=== PATIENT | male | born 2000 | race Caucasian/White ===

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

== ENCOUNTER 2018-01-11 15:42 | Emergency (ER) | payer OTHER ==
[~2018-01-11] VITALS: Ht 188 cm; Wt 104.3 kg
[~2018-01-11 15:42] MED LIST changes: +Bactrim Ds Tab1 EACH PO
== END 2018-01-11 17:15 | disposition home or self-care (01) ==
LOC: ER 15:42
DX: J06.9 Acute upper respiratory infection, unspecified (principal)
CPT/HCPCS: 99283

== ENCOUNTER 2018-12-26 13:33 | Emergency (ER) | payer SELFPAY ==
[~2018-12-26] VITALS: Ht 185.4 cm; Wt 102.1 kg
[2018-12-26] MEDS ORDERED: PENVK500 PO (14:33)
== END 2018-12-26 14:39 | disposition home or self-care (01) ==
LOC: ER 13:33
DX: J02.0 Streptococcal pharyngitis (principal)
CPT/HCPCS: 87430; 99283; J1100

== ENCOUNTER 2019-07-30 11:06 | Emergency (ER) | payer OTHER ==
[~2019-07-30] VITALS: Ht 185.4 cm; Wt 97.5 kg
[~2019-07-30 11:06] MED LIST changes: +PENVK500 PO
[2019-07-30] MEDS ORDERED: Mucinex600 MG PO (11:46)
[2019-07-30] MEDS ORDERED: Veetids 500500 MG PO (11:46)
== END 2019-07-30 12:00 | disposition home or self-care (01) ==
LOC: ER 11:06
DX: J02.9 Acute pharyngitis, unspecified (principal); J45.909 Unspecified asthma, uncomplicated; F90.9 Attention-deficit hyperactivity disorder, unspecified type; Z79.2 Long term (current) use of antibiotics
CPT/HCPCS: 87081; 87430; 99283

== ENCOUNTER 2019-11-08 12:18 | Emergency (ER) | payer OTHER ==
[~2019-11-08] VITALS: Ht 185.4 cm; Wt 104.3 kg
[~2019-11-08 12:18] MED LIST changes: +Mucinex600 MG PO; +Veetids 500500 MG PO
[2019-11-08] MEDS ORDERED: HYDR1TAB94 PO (16:13)
== END 2019-11-08 16:18 | disposition home or self-care (01) ==
LOC: ER 12:18
DX: S52.571A Other intraarticular fracture of lower end of right radius, initial encounter for closed fracture (principal); S52.611A Displaced fracture of right ulna styloid process, initial encounter for closed fracture; Z79.2 Long term (current) use of antibiotics; F90.9 Attention-deficit hyperactivity disorder, unspecified type; V00.131A Fall from skateboard, initial encounter
CPT/HCPCS: 25605; 36415; 73100; 99283-25; J2704; J7030

== ENCOUNTER 2021-04-02 16:47 | Emergency (ER) | payer OTHER ==
[~2021-04-02] VITALS: Ht 185.4 cm; Wt 108.9 kg
[~2021-04-02 16:47] MED LIST changes: +HYDR1TAB94 PO
[2021-04-02] MEDS ORDERED: LIDO700A20 TOP (17:50)
[2021-04-02] MEDS ORDERED: CYCL10 PO (17:50)
== END 2021-04-02 18:11 | disposition home or self-care (01) ==
LOC: ER 16:47
DX: S29.012A Strain of muscle and tendon of back wall of thorax, initial encounter (principal); J45.909 Unspecified asthma, uncomplicated; F17.220 Nicotine dependence, chewing tobacco, uncomplicated; X58.XXXA Exposure to other specified factors, initial encounter
CPT/HCPCS: 71101; 96372; 99283-25; J1885

== ENCOUNTER 2021-07-06 19:16 | Emergency (ER) | payer OTHER ==
[~2021-07-06] VITALS: Ht 188 cm; Wt 107.0 kg
[~2021-07-06 19:16] MED LIST changes: +CYCL10 PO; +LIDO700A20 TOP; +ONDA4ODT MM
== END 2021-07-06 19:56 | disposition home or self-care (01) ==
LOC: ER 19:16
DX: S93.401A Sprain of unspecified ligament of right ankle, initial encounter (principal); X58.XXXA Exposure to other specified factors, initial encounter
CPT/HCPCS: 73600; 99283-25

== ENCOUNTER 2021-09-15 09:21 | Emergency (ER) | payer OTHER ==
[~2021-09-15] VITALS: Ht 188 cm; Wt 106.6 kg
[2021-09-15] MEDS ORDERED: ACET500 PO (12:08)
[2021-09-15] MEDS ORDERED: OXYC5 PO (12:08)
[2021-09-15] MEDS ORDERED: CEPH500 PO (12:08)
== END 2021-09-15 12:33 | disposition home or self-care (01) ==
LOC: ER 09:21
DX: L03.113 Cellulitis of right upper limb (principal); F17.220 Nicotine dependence, chewing tobacco, uncomplicated; J45.909 Unspecified asthma, uncomplicated; Z88.5 Allergy status to narcotic agent; Z79.899 Other long term (current) drug therapy
CPT/HCPCS: 73130; A9270; J1885

== ENCOUNTER 2021-11-20 07:55 | Emergency (ER) | payer OTHER ==
[~2021-11-20] VITALS: Ht 188 cm; Wt 108.9 kg
[~2021-11-20 07:55] MED LIST changes: +ACET500 PO; +OXYC5 PO
[2021-11-20 09:35] LABS: BASOPHILS ABSOLUTE AUTO 0.02 K/mm3 (0.00-0.23); BASOPHILS PERCENT AUTO 0 % (0-2); EOSINOPHILS ABSOLUTE AUTO 0.03 K/mm3 (0.00-0.68); EOSINOPHILS PERCENT AUTO 0 % (0-6); Hematocrit 46.3 % (37.0-53.0); Hemoglobin 15.9 g/dL (13.5-17.5); IMMATURE GRAN ABSOLUTE AUTO 0.03 K/mm3 (0.00-0.10); IMMATURE GRAN PERCENT AUTO 0 % (0-1); LYMPHOCYTES ABSOLUTE AUTO 2.01 K/mm3 (0.84-5.20); LYMPHOCYTES PERCENT AUTO 18 % (21-46); MONOCYTES ABSOLUTE AUTO 0.79 K/mm3 (0.16-1.47); MONOCYTES PERCENT AUTO 7 % (4-13); Mean Corpuscular HGB 30.2 pg (26.0-34.0); Mean Corpuscular HGB Conc 34.3 g/dL (31.5-36.5); Mean Corpuscular Volume 88 fL (80-100); Mean Platelet Volume 9.7 fL (9.1-12.4); NEUTROPHILS ABSOLUTE AUTO 8.03 K/mm3 (1.96-9.15); NEUTROPHILS PERCENT AUTO 74 % (41-73); Platelet Count 281 K/mm3 (150-400); RDW Coefficient Variation 12.1 % (11.7-14.2); RDW Standard Deviation 39.2 fL (35.1-46.3); Red Blood Cell Count 5.27 M/mm3 (4.30-5.90); White Blood Cell Count 10.91 K/mm3 (4.00-11.30)
[2021-11-20 09:46] LABS: Influenza A, PCR NEGATIVE (NEGATIVE); Influenza B, PCR NEGATIVE (NEGATIVE); Resp Syncytial Virus, PCR NEGATIVE (NEGATIVE); SARS-Cov-2 (COVID-19) PCR, MMC NEGATIVE (NEGATIVE)
[2021-11-20 10:05] LABS: Albumin, Blood 4.2 g/dL (3.4-5.0); Bilirubin, Total 0.8 mg/dL (0.1-1.0); Calcium, Blood 9.7 mg/dL (8.5-10.1); Creatinine, Blood 0.82 mg/dL (0.60-1.20); Globulin, Blood 4.2 g/dL (2.2-4.0); Potassium, Blood 4.1 mmol/L (3.5-5.5); Total Protein, Blood 8.4 g/dL (6.4-8.2)
[2021-11-20] MEDS ORDERED: ONDA4 PO (11:40)
== END 2021-11-20 12:17 | disposition home or self-care (01) ==
LOC: ER 07:55
PROVIDERS: Emergency Medicine; Student in an Organized Health Care Education/Training Program
DX: R10.9 Unspecified abdominal pain (principal); F17.220 Nicotine dependence, chewing tobacco, uncomplicated; Z20.822 Contact with and (suspected) exposure to COVID-19; Z88.5 Allergy status to narcotic agent
CPT/HCPCS: 0241U; 36415; 71045; 74177; 80053; 83690; 85025; A9270; J2405; J7030; Q9967

== ENCOUNTER 2022-02-21 14:44 | Emergency (ER) | payer OTHER ==
[~2022-02-21] VITALS: Ht 188 cm; Wt 106.6 kg
[~2022-02-21 14:44] MED LIST changes: +ONDA4 PO
[2022-02-21] MEDS ORDERED: Percocet 5-3251 EACH PO (16:15)
== END 2022-02-21 16:25 | disposition home or self-care (01) ==
LOC: ER 14:44
DX: M25.511 Pain in right shoulder (principal); Z88.5 Allergy status to narcotic agent; Z79.899 Other long term (current) drug therapy; J45.909 Unspecified asthma, uncomplicated; F17.220 Nicotine dependence, chewing tobacco, uncomplicated
CPT/HCPCS: 73030; A9270

== ENCOUNTER 2023-10-19 17:42 | Emergency (ER) | payer OTHER ==
[~2023-10-19] VITALS: Ht 175.3 cm; Wt 70.3 kg
[~2023-10-19 17:42] MED LIST changes: +Percocet 5-3251 EACH PO
[2023-10-19] MEDS ORDERED: Lactated Ringer's 1,000 ML IV ONE ×2 (18:00→18:10)
[2023-10-19 18:03] LABS: BASOPHILS ABSOLUTE AUTO 0.03 K/mm3 (0.00-0.23); BASOPHILS PERCENT AUTO 0 % (0-2); EOSINOPHILS ABSOLUTE AUTO 0.01 K/mm3 (0.00-0.68); EOSINOPHILS PERCENT AUTO 0 % (0-6); Hematocrit 46.5 % (37.0-53.0); Hemoglobin 16.1 g/dL (13.5-17.5); IMMATURE GRAN ABSOLUTE AUTO 0.04 K/mm3 (0.00-0.10); IMMATURE GRAN PERCENT AUTO 0 % (0-1); LYMPHOCYTES ABSOLUTE AUTO 1.57 K/mm3 (0.84-5.20); LYMPHOCYTES PERCENT AUTO 12 % (21-46); MONOCYTES ABSOLUTE AUTO 0.47 K/mm3 (0.16-1.47); MONOCYTES PERCENT AUTO 4 % (4-13); Mean Corpuscular HGB 29.6 pg (26.0-34.0); Mean Corpuscular HGB Conc 34.6 g/dL (31.5-36.5); Mean Corpuscular Volume 86 fL (80-100); Mean Platelet Volume 9.5 fL (9.1-12.4); NEUTROPHILS PERCENT AUTO 84 % (41-73); Platelet Count 303 K/mm3 (150-400); RDW Coefficient Variation 12.7 % (11.7-14.2); Red Blood Cell Count 5.44 M/mm3 (4.30-5.90); White Blood Cell Count 13.32 K/mm3 (4.00-11.30)
[2023-10-19] MEDS ORDERED: Lactated Ringer's 2,000 ML IV ONE (18:04)
[2023-10-19] MEDS ORDERED: NS 1,000 ML IV SCH (18:10)
[2023-10-19 18:23] LABS: Albumin, Blood 4.5 g/dL (3.4-5.0); Bilirubin, Total 0.4 mg/dL (0.1-1.0); Bun/Creatinine Ratio 12.8 (12.0-20.0); Calcium, Blood 9.2 mg/dL (8.5-10.1); Creatinine, Blood 0.86 mg/dL (0.60-1.20); Globulin, Blood 4.4 g/dL (2.2-4.0); Potassium, Blood 3.9 mmol/L (3.5-5.5); Total Protein, Blood 8.9 g/dL (6.4-8.2)
[2023-10-19 20:04] LABS: Source, Urine Clean Catch
[2023-10-19 20:09] LABS: Appearance, Urine Clear (Clear); Bilirubin, Urine Neg (Neg); Blood, Urine Neg (Neg); Color, Urine Yellow (P-Yellow); Glucose Qualitative, Urine Neg (Neg); Ketones, Urine 3+ (Neg); Leukocyte Esterase, Urine Neg (Neg); Nitrite, Urine Neg (Neg); Protein, Urine Neg (Neg); Urobilinogen, Urine NORM (Normal)
[2023-10-19 20:26] LABS: U Amphetamine Screen Not Detected; U Barbituate Screen Not Detected; U Benzodiazapine Screen Not Detected; U Buprenorphine Screen Not Detected; U Cannabinoids Screen DETECTED; U Cocaine Screen Not Detected; U Methadone Screen Not Detected; U Methamphetamine Screen Not Detected; U Opiates Screen Not Detected; U Oxycodone Screen Not Detected; U Phencyclidine Screen Not Detected
[2023-10-19 20:30] VITALS: BP 144/83
== END 2023-10-19 20:45 | disposition home or self-care (01) ==
LOC: ER 17:42
PROVIDERS: Student in an Organized Health Care Education/Training Program
DX: F10.129 Alcohol abuse with intoxication, unspecified (principal); E86.0 Dehydration; T67.5XXA Heat exhaustion, unspecified, initial encounter; J45.909 Unspecified asthma, uncomplicated; F17.220 Nicotine dependence, chewing tobacco, uncomplicated; Z79.899 Other long term (current) drug therapy; Z88.5 Allergy status to narcotic agent
CPT/HCPCS: 80053; 81003; 82947; 85025; 93005; 93010; 96360; 99284-25; J7120

== ENCOUNTER 2024-02-03 08:29 | Day surgery (SDC) | payer OTHER ==
[~2024-02-03] VITALS: Ht 185.4 cm; Wt 101.0 kg
[2024-02-03] VITALS (9 sets, daily range): BP systolic 124–138; BP diastolic 78–90
[~2024-02-03 08:29] MED LIST changes: +CeFAZolin Sodium 2,000 MG in NS 100 ML IV SCH; +Lactated Ringer's 1,000 ML IV SCH
[2024-02-03] MEDS ORDERED: CeFAZolin Sodium 2,000 MG VIAL ONE (08:34)
--- NOTE | 2024-02-03 09:06 | NUR ---
Ambulatory in Day Surgery History, Chart, Medications and Allergies reviewed before start of procedure. Pre-Op teaching done. Pt verbalizes understanding. Patient States Post-Procedure ride home has been arranged.
[2024-02-03] MEDS ORDERED: Bupivacaine 0.5% HCl 5 MG/ML 30MLVIAL ONE (10:18)
[2024-02-03] MEDS ORDERED: propofoL 100 ML IV ONE (10:24)
[2024-02-03] MEDS ORDERED: FentaNYL Citrate 50 MCG/ML 2 ML Injection ONE (10:27)
[2024-02-03] MEDS ORDERED: Midazolam HCl 1MG / ML 2ML Vial ONE (10:28)
[2024-02-03] MEDS ORDERED: Rocuronium Bromide 10 MG/ML 5ML Injection IV ONE ×2 (10:31→11:46)
[2024-02-03] MEDS ORDERED: Ketorolac Tromethamine 30mg Vial ONE (10:42)
[2024-02-03] MEDS ORDERED: Dexamethasone Sod Phos 10 MG/ML 1ML VIAL ONE (10:42)
[2024-02-03] MEDS ORDERED: Ondansetron HCl 2 MG / ML 2ML Vial ONE (10:42)
[2024-02-03] MEDS ORDERED: Sugammadex Sodium 200 MG/2ML SDV (100 MG/ML) ONE (10:43)
[2024-02-03] MEDS ORDERED: OxyCODONE 5 mg/Acetamin 325 mg TABLET PO PRN (11:55)
--- NOTE | 2024-02-03 13:34 | NUR ---
Discharge instructions reviewed with patient. Patient verbalizes understanding. Copy given to patient to take home. Dressing X3 c/d/i. 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 Patient States Post-Procedure ride home has been arranged. Discharged via wheelchair to private car for ride home.
== END 2024-02-03 13:36 | disposition home or self-care (01) ==
LOC: ORSCMMR 08:29 → ORD 10:15 → ORSCMMR 10:15 → ORD 13:00 → ORSCMMR 13:36 → ORD 02-13 13:00
PROVIDERS: Surgery
PROC: 0YU54JZ Supplement Right Inguinal Region with Synthetic Substitute, Percutaneous Endoscopic Approach (ICD-10-PCS; principal; 2024-02-03 10:15)
PROC: 8E0W4CZ Robotic Assisted Procedure of Trunk Region, Percutaneous Endoscopic Approach (ICD-10-PCS; principal; 2024-02-03 10:15)
DX: K40.91 Unilateral inguinal hernia, without obstruction or gangrene, recurrent (principal); J45.909 Unspecified asthma, uncomplicated; F90.9 Attention-deficit hyperactivity disorder, unspecified type
CPT/HCPCS: A9270; C1781; J0690; J1100; J1885; J2250; J2405; J2704; J3010; J7120

== ENCOUNTER 2024-03-27 07:22 | Emergency (ER) | payer OTHER ==
[~2024-03-27] VITALS: Ht 188 cm; Wt 102.1 kg
[~2024-03-27 07:22] MED LIST changes: -CeFAZolin Sodium 2,000 MG in NS 100 ML IV SCH; -Lactated Ringer's 1,000 ML IV SCH
[2024-03-27 08:20] VITALS: BP 133/85
[2024-03-27] MEDS ORDERED: Penicillin G Benzathine 1.2 MMU / 2 ML SYR IM ONE (09:00)
[2024-03-27] MEDS ORDERED: Dexamethasone Sod Phos 10 MG/ML 1ML VIAL PO ONE (09:05)
[2024-03-27] MEDS ORDERED: Ketorolac Tromethamine 30mg Vial IM ONE (09:05)
== END 2024-03-27 09:23 | disposition home or self-care (01) ==
LOC: ER 07:22
DX: J02.9 Acute pharyngitis, unspecified (principal); J45.909 Unspecified asthma, uncomplicated; F17.220 Nicotine dependence, chewing tobacco, uncomplicated; Z88.5 Allergy status to narcotic agent
CPT/HCPCS: 87081; 87430; 96372; 99282-25; J0561; J1100; J1885

== ENCOUNTER 2024-04-12 10:11 | Emergency (ER) | payer OTHER ==
[~2024-04-12] VITALS: Ht 188 cm; Wt 102.1 kg
[2024-04-12 10:50] VITALS: BP 138/92
[2024-04-12 11:22] LABS: CORONAVIRUS COVID-19 AG Negative (NEGATIVE); INFLUENZA A AG Negative (NEGATIVE); INFLUENZA B AG Negative (NEGATIVE)
[2024-04-12] MEDS ORDERED: Dexamethasone Sod Phos 10 MG/ML 1ML VIAL PO ONE (11:45)
[2024-04-12] MEDS ORDERED: Ketorolac Tromethamine 15mg Vial IM ONE (11:45)
== END 2024-04-12 12:04 | disposition home or self-care (01) ==
LOC: ER 10:11
PROVIDERS: Physician Assistant
DX: J06.9 Acute upper respiratory infection, unspecified (principal); J02.9 Acute pharyngitis, unspecified; J45.909 Unspecified asthma, uncomplicated; Z88.5 Allergy status to narcotic agent
CPT/HCPCS: 87081; 87147; 87428-QW; 87430; 96372; 99282-25; J1100; J1885

== ENCOUNTER 2024-08-15 12:23 | Emergency (ER) | payer OTHER ==
[~2024-08-15] VITALS: Ht 185.4 cm; Wt 104.3 kg
[2024-08-15 12:33] VITALS: BP 148/88
[2024-08-15] MEDS ORDERED: Diphth,Pertuss(Acell),Tet Vac 0.5 ML VIAL IM ONE (12:40)
[2024-08-15] MEDS ORDERED: AMOCLA875 PO (14:10)
== END 2024-08-15 14:23 | disposition home or self-care (01) ==
LOC: ER 12:23
DX: S61.452A Open bite of left hand, initial encounter (principal); Z23 Encounter for immunization; F17.220 Nicotine dependence, chewing tobacco, uncomplicated; W54.0XXA Bitten by dog, initial encounter; Z88.5 Allergy status to narcotic agent
CPT/HCPCS: 73130; 90471; 90715; 99283-25

== ENCOUNTER 2025-01-06 14:08 | Observation (INO) | payer OTHER ==
[~2025-01-06] VITALS: Ht 185.4 cm; Wt 99.4 kg
[~2025-01-06 14:08] MED LIST changes: +AMOCLA875 PO
[2025-01-06 14:23] LABS: BASOPHILS ABSOLUTE AUTO 0.04 K/mm3 (0.00-0.23); BASOPHILS PERCENT AUTO 1 % (0-2); EOSINOPHILS ABSOLUTE AUTO 0.12 K/mm3 (0.00-0.68); EOSINOPHILS PERCENT AUTO 2 % (0-6); Hematocrit 42.2 % (37.0-53.0); Hemoglobin 15.0 g/dL (13.5-17.5); IMMATURE GRAN ABSOLUTE AUTO 0.02 K/mm3 (0.00-0.10); IMMATURE GRAN PERCENT AUTO 0 % (0-1); LYMPHOCYTES ABSOLUTE AUTO 1.84 K/mm3 (0.84-5.20); LYMPHOCYTES PERCENT AUTO 23 % (21-46); MONOCYTES ABSOLUTE AUTO 0.69 K/mm3 (0.16-1.47); MONOCYTES PERCENT AUTO 9 % (4-13); Mean Corpuscular HGB Conc 35.5 g/dL (31.5-36.5); Mean Corpuscular Volume 87 fL (80-100); NEUTROPHILS ABSOLUTE AUTO 5.28 K/mm3 (1.96-9.15); NEUTROPHILS PERCENT AUTO 66 % (41-73); NRBC ABSOLUTE 0.00 K/mm3 (0.00-0.02); NRBC Auto 0.0 /100 WBC (0.0-0.2); Platelet Count 230 K/mm3 (150-400); RDW Coefficient Variation 12.2 % (11.7-14.2); RDW Standard Deviation 38.5 fL (35.1-46.3)
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
[2025-01-06 14:55] LABS: Alanine Aminotransfer (ALT/SGP 26 U/L (12-78); Albumin, Blood 3.7 g/dL (3.4-5.0); Albumin/Globulin Ratio 1.1 (0.8-1.8); Anion Gap 9 mmol/L (3-11); Aspartate Aminotrans (AST/SGOT 20 U/L (12-37); Bilirubin, Total 0.3 mg/dL (0.1-1.0); Blood Urea Nitrogen 16 mg/dL (8-24); CO2, Blood 26 mmol/L (21-32); Calcium, Blood 8.4 mg/dL (8.5-10.1); Chloride, Blood 109 mmol/L (98-108); Creatinine, Blood 0.86 mg/dL (0.60-1.20); Ethanol (Alcohol), Blood, Med <3 mg/dL; Globulin, Blood 3.4 g/dL (2.2-4.0); Glucose, Blood 110 mg/dL (70-99); Potassium, Blood 4.0 mmol/L (3.5-5.5); Sodium, Blood 140 mmol/L (136-145); Total Protein, Blood 7.1 g/dL (6.4-8.2)
[2025-01-06 15:45] VITALS: BP 154/88
== END 2025-01-06 23:08 | disposition home or self-care (01) ==
LOC: ER 14:08 → EOR 15:58
PROVIDERS: ADMIT Emergency Medicine
DX: S09.90XA Unspecified injury of head, initial encounter (principal); V29.99XA Rider (driver) (passenger) of other motorcycle injured in unspecified traffic accident, initial encounter; F32.A Depression, unspecified; F17.220 Nicotine dependence, chewing tobacco, uncomplicated; Z88.5 Allergy status to narcotic agent; F90.9 Attention-deficit hyperactivity disorder, unspecified type
CPT/HCPCS: 70450; 71260; 72125; 74177; 80053; 80320; 85025; 93005; 93010; 99285-25; G0378; Q9967